=== PATIENT | female | born 1955 | race Caucasian/White ===

== ENCOUNTER → 2017-01-26 | Outpatient (CLI) | payer OTHER ==
[~2017-01-26] MED LIST: GADOBUTROL 10 ML VIAL IVP ONE
== END ==
LOC: FIMAGING 16:49
PROVIDERS: ATTEND Internal Medicine
DX: H53.9 Unspecified visual disturbance (principal); D32.9 Benign neoplasm of meninges, unspecified
CPT/HCPCS: A9585

== ENCOUNTER → 2017-03-04 | Outpatient (CLI) | payer OTHER ==
--- NOTE | 2017-03-07 12:52 | CPEEG ---
[f rep st] ELECTROENCEPHALOGRAM 4-HOUR VIDEO EEG DATE OF STUDY: 03/04/2017 DATE OF INTERPRETATION: 03/07/2017 INTERPRETATION: This 4-hour video EEG recording is normal. There were no potentially epileptogenic abnormalities present on the awake or sleep recordings. During the video EEG monitoring session, the patient did not have any clinical events. REPORT: This 4-hour video EEG contains 10-11 Hz alpha activity to the posterior head regions. There was no abnormal activation at rest, during photic stimulation or hyperventilation. The background activity was normal and symmetric. The patient became drowsy and fell into sustained sleep during the study. This included rapid eye movement (REM) sleep. There was no abnormal activation during drowsiness, sleep or during times of arousal. During the video EEG monitoring session, the patient did not have any clinical events. /[id number]/MODL MTDD
== END ==
LOC: FCPNEURO 08:41
PROVIDERS: ATTEND Psychiatry & Neurology Neurology
DX: D32.0 Benign neoplasm of cerebral meninges (principal)

== ENCOUNTER → 2017-06-09 | Outpatient (CLI) | payer OTHER | LOC: FIMAGING 09:32 | PROVIDERS: ATTEND Internal Medicine | DX: Z01.818 Encounter for other preprocedural examination (principal); D32.9 Benign neoplasm of meninges, unspecified ==

== ENCOUNTER 2017-06-14 07:15 | Inpatient (IN) | payer OTHER ==
[2017-06-14] MEDS ORDERED: ceFAZolin 2 GM/DEXTROSE 100 ML IV ONE (07:26)
[2017-06-14] MEDS ORDERED: DEXAMETHASONE 10 MG/ML VIAL IVP ONE (07:26)
[2017-06-14] MEDS ORDERED: GADOBUTROL 10 ML VIAL IVP ONE (08:03)
[2017-06-14] MEDS ORDERED: LIDOCAINE 1% 2 ML INJ ID PRN (08:23)
[2017-06-14] MEDS ORDERED: LR 1,000 ML IV ONE (08:23)
[2017-06-14 09:29] LABS: INR 1.19 (0.83-1.16); PROTIME(PATIENT) 15.1 SEC (12.0-15.0)
[2017-06-14 09:30] LABS: APTT 29.5 SEC (23.0-38.0)
[2017-06-14] MEDS ORDERED: MANNITOL 20% 100 GM/500 ML BAG IV ONE (09:44)
[2017-06-14] MEDS ORDERED: BACITRACIN ZINC 14.2 GM OINTTUBE TP ONE (09:44)
[2017-06-14] MEDS ORDERED: CHLORHEXIDINE GLUC HIBICLENS 118 ML BTL TP ONE (09:44)
[2017-06-14] MEDS ORDERED: SURGIFLO MATRIX KIT WITH THROMBIN TP ONE (09:44)
[2017-06-14] MEDS ORDERED: POVIDONE-IODINE 30 GM OINTTUBE TP ONE (09:45)
[2017-06-14] MEDS ORDERED: HYDROGEN PEROXIDE 236 ML BOTTLE TP ONE (09:45)
[2017-06-14] MEDS ORDERED: GENTAMICIN SULFATE 80 MG/2 ML VIAL ONE (09:45)
[2017-06-14] MEDS ORDERED: AVITENE POWDER 1 GM JAR TP ONE (09:45)
[2017-06-14] MEDS ORDERED: BUPIVACAINE/EPI 0.25% 30 ML SDV ONE (09:45)
--- NOTE | 2017-06-14 09:51 | PDHPUP ---
History & Physical Update H&P update statement: This history and physical update is based on an assessment of the patient which was completed after admission or registration (within 24 hours), but prior to the surgery/procedure. H&P update: H&P reviewed & patient examined, no change in patient's condition since H&P completed
[2017-06-14] MEDS ORDERED: MIDAZOLAM 2 MG/2 ML VIAL IVP ONE (10:55)
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
[2017-06-14] MEDS ORDERED: PROPOFOL 200 MG/20 ML VIAL ONE (11:44)
[2017-06-14] MEDS ORDERED: PROPOFOL/EMULSION 500 MG/50 ML BOTTLE IV ONE (11:44)
[2017-06-14] MEDS ORDERED: ROCURONIUM 50 MG/5 ML VIAL ONE (11:44)
[2017-06-14] MEDS ORDERED: LIDOCAINE 2% 5 ML SDV ONE (11:44)
[2017-06-14] MEDS ORDERED: fentaNYL 100 MCG/2 ML INJ ONE ×3 (11:44→16:03)
[2017-06-14] MEDS ORDERED: REMIFENTANIL HCL 1 MG VIAL ONE (11:44)
[2017-06-14] MEDS ORDERED: THROMBIN (BOVINE) 5,000 UNIT VIAL TP ONE (12:12)
[2017-06-14] MEDS ORDERED: PHENYLEPHRINE HCL 100 MCG/ML SYR ONE ×2 (12:37→13:14)
[2017-06-14] MEDS ORDERED: DEXAMETHASONE 4 MG/ML VIAL ONE ×3 (12:40)
[2017-06-14] MEDS ORDERED: NALOXONE HCL 0.4 MG/ML INJ IVP PRN (15:18)
[2017-06-14] MEDS ORDERED: PROMETHAZINE HCL 25 MG/ML INJ IVP PRN (15:18)
[2017-06-14] MEDS ORDERED: HYDROmorphONE/DILAUDID 1 MG/ML SYR IVP PRN ×2 (15:18→16:27)
[2017-06-14] MEDS ORDERED: MEPERIDINE 25 MG/ML SYR IVP PRN (15:18)
[2017-06-14] MEDS ORDERED: ONDANSETRON 4 MG/2 ML VIAL IVP PRN ×2 (15:18→16:27)
[2017-06-14] MEDS ORDERED: fentaNYL 100 MCG/2 ML INJ IVP PRN ×2 (15:18)
[2017-06-14] MEDS ORDERED: ONDANSETRON 4 MG/2 ML VIAL ONE ×2 (15:21→16:47)
[2017-06-14] MEDS ORDERED: ceFAZolin 1 GM VIAL ONE ×2 (15:26)
[2017-06-14] MEDS ORDERED: MAGNESIUM HYDROXIDE 30 ML UDCUP PO PRN (16:27)
[2017-06-14] MEDS ORDERED: ONDANSETRON DISINTEGRATING 4 MG TAB PO PRN (16:27)
[2017-06-14] MEDS ORDERED: LACTULOSE 20 GM/30 ML UDCUP PO PRN (16:27)
[2017-06-14] MEDS ORDERED: POLYETHYLENE GLYCOL 3350 17 GM PKT PO PRN (16:27)
[2017-06-14] MEDS ORDERED: BISACODYL 10 MG SUPP PR PRN (16:27)
[2017-06-14] MEDS ORDERED: HYDROCODONE/APAP 10/325 TAB PO PRN (16:27)
[2017-06-14] MEDS ORDERED: ACETAMINOPHEN 325 MG TAB PO PRN (16:27)
--- NOTE | 2017-06-14 16:27 | POSTANESTH ---
Post Anesthetic Evaluation Cardiovascular Status: Normal, Stable Respiratory Status: Normal, Stable Level of Consciousness/Mental Status: Can Participate in Eval Pain Control: Adequate, Prn Tx Ordered Nausea/Vomiting Control: Adequate, Prn Tx Ordered Complications Possibly Related to Anesthesia: None Noted
[2017-06-14] MEDS ORDERED: *MD ORDERING ONLY-DEXAMETHASONE TAPER PO SCH (16:30)
[2017-06-14] MEDS ORDERED: NS W/ 20 KCl/L 1,000 ML IV SCH (16:30)
--- NOTE | 2017-06-14 16:44 | POSTOPPROG ---
Post Op Note Date of Operation: 06/14/17 Surgeon: Gregory Cason Home Agent: Ingris Jenkins PA-C Anesthesia: GET(General Endotracheal) Pre-op Diagnosis: Left petroclival brain mass Post-op Diagnosis: same Procedure: Left sub-temporal craniotomy for resection of brain mass Inf/Abcess present in the surg proc area at time of surgery?: No Depth: Organ Space EBL: 50-100 SOAP Progress Note Assessment/Plan: Assessment: Plan: 06/14/17 16:40 S: Patient in PACU. Stable. Denies pain. O: NAD, VSS- tachy 116 PERRL, EOMI CN II-XII grossly intact No droop ZIEGLER X 4 Sensation intact Incision c/d/i- stapled on telfa and baci on incision A: 61 yo female sp left sub-temporal craniotomy for resection of brain mass, suspected meningioma Plan: -Admit to ICU -Neuro checks -Postop MRI in am -Family called after procedure and noted that patient may or may not have been drinking a lot lately. Is a prior alcoholic. Has had recent episodes of possibe seizure/passing out so drinking activity unknown. Have ordered CIWA protocol in case we need to be aware of withdrawal -Optimized pain management -Activity as tolerated -PT/OT/GERIATRIC PHYSICIAN -Final pathology pending- suspect meningioma -call NS with any changes in neuro exam Objective: Vital Signs Temp Pulse Resp BP Pulse Ox 37.3 C 87 20 135/85 H 83 L 06/14/17 11:40 06/14/17 11:40 06/14/17 11:40 06/14/17 11:40 06/14/17 11:40 PT 15.1 SEC (12.0-15.0) H 06/14/17 08:20 INR 1.19 (0.83-1.16) H 06/14/17 08:20
[2017-06-14] MEDS ORDERED: HYDROmorphONE/DILAUDID 1 MG/ML SYR ONE (16:47)
[2017-06-14] MEDS: HYDROmorphONE/DILAUDID 1 MG/ML SYR IVP PRN ×3 (16:50→17:11)
[2017-06-14] MEDS: DEXAMETHASONE 4 MG TAB PO SCH (18:16)
--- NOTE | 2017-06-14 20:18 | GOP ---
[f rep st] OPERATIVE REPORT DATE OF OPERATION: 06/14/2017 SURGEON: Gregory Cason MD NEUROSURGEON: Gregory Cason MD OR MANAGER: Marva Richards PA-C ANESTHESIA: General endotracheal. PREOPERATIVE DIAGNOSIS: Petrous apex meningioma. POSTOPERATIVE DIAGNOSIS: Petrous apex meningioma. PROCEDURE PERFORMED: 1. Left temporal craniotomy. 2. Microsurgical gross total resection of left petrous apex meningioma via left subtemporal skull-b ased approach. 3. Use of the operative microscope. 4. Stealth stereotactic neuronavigation for volumetric gross total resection of meningioma. 5. Intraoperative neurophysiologic monitoring, including cranial nerves, V and . 6. Electromyography monitoring. FINDINGS: Successful tumor resection. SPECIMENS: Left petrous apex mass. ESTIMATED BLOOD LOSS: 75 cc. DESCRIPTION OF PROCEDURE: After informed consent was obtained from the patient, the patient was bro ught to the operating room and was placed in a supine position on the operating table. A formal stas e-out was performed, identifying the patient by name, medical record number, and date of . Pre operative antibiotics were given. The endotracheal tube was placed, and general endotracheal anesth esia was smoothly induced. The patient was then turned to the left lateral decubitus position, and a lumbar drain was placed using a 14-gauge Touhy needle under sterile conditions. The needle was us ed to puncture the dura at the L3-4 interspace. Clear CSF was obtained. The drain was threaded to a depth of 30 cm, and the needle was removed. The drain was then sterilely dressed. The patient wa s then turned back into the supine position, where all appropriate neurophysiologic monitoring leads were placed, and I placed the leads into the lateral rectus muscle of the left eye for monitoring o f cranial nerve . Next, the head was placed in the Brown pins and turned toward the right side . The Stealth was registered to the scalp using known surface landmarks and checked for accuracy. This was then used to plan a left subtemporal incision, starting at the root of the zygoma and curvi ng posteriorly over the ear. The hair was clipped. 10 cc of 0.25% Marcaine with epinephrine was in filtrated in the skin for hemostasis. The head was then prepped and draped in the normal sterile fa shion, and the skin incision was made using a 10 blade. The subcutaneous tissues were dissected usi ng monopolar electrocautery, and the temporalis muscle and its fascia was opened in line with the in cision. David clips were placed for hemostasis. 40 cc of CSF was then drained from the lumbar drai n, which allowed the brain to be slack. A single bur hole was created at the root of the zygoma, an d a standard subtemporal curvilinear craniotomy flap based at the temporal fossa was turned using th e craniotome. The high-speed drill was used to drill down the temporal bone at the skull base, and some mastoid air cells were entered. These were waxed using bone wax. All bleeding was controlled with bipolar electrocautery and Gelfoam. A few dural tack-up sutures were placed. The dura was the n opened in a curvilinear fashion with its base at the subtemporal region and tacked up using 4-0 Nu saritha. The operative microscope was then brought on the field, and the remainder of procedure was p erformed under high-power magnification. First, we gently elevated the temporal lobe on the left side with care to preserve all veins and vas cular structures. As we elevated this anteriorly, the tumor was visualized growing superiorly from the tentorium and over Meckel cave. We continued elevating, exposing the anterior and posterior asp ects of the tumor, and this was checked with the Stealth. The brain had good relaxation, and we did not need to place self-retaining retractors but just dynamic traction with use of the suction and b ipolar forceps. The base of the tumor was then devascularized, using the bipolar, and the tumor was entered. It was quite fibrous and we tried to debulk some of it with the ultrasonic aspirator, but it was largely to fibrous to be removed by this manner; therefore, we continued using bipolar elect rocautery and micro scissors to remove the tumor in a piecemeal fashion. As we debulked internally, I was unable to find the edge of the tentorium posteriorly, and we could see the ambient cistern. Some CSF was drained from that area. We continued then, moving anteriorly, resecting more of the tu mor, and as we debulked internally, we were able to collapse the capsule on itself away from the tem poral lobe. As we reached the more anterior portion, we could see where the tentorium became contin uous with the lateral cavernous sinus over Meckel cave. I did see a small structure, which appeared like a cranial nerve. This was stimulated and we did get some stimulation of cranial nerve V, sugg esting this indeed was over Meckel cave. We continued resecting as much of the tumor superior to th e tentorium and lateral cavernous sinus as we could. I did not want to enter the cavernous sinus as we were trying to not give her any major cranial nerve deficits. We checked our resection with the Stealth, and all the larger supratentorial portion of the tumor appeared to be removed. The edge o f the tentorium from where the tumor was growing was coagulated using bipolar electrocautery. There was no further bleeding, and the temporal lobe was nicely relaxed. At this point, the wound was co piously irrigated using gentamicin irrigation. The temporal lobe at the area where we had resected the tumor was covered with Surgicel, and the dura was then closed in a watertight fashion using inte rrupted 4-0 Nurolon. The dural opening was covered with DuraSeal and a piece of Gelfoam, and the cr aniotomy flap was plated back in place using Synthes titanium plates and screws. At this point, the wound was again copiously irrigated using bacitracin irrigation. The temporalis muscle and its fas kala were closed using interrupted 2-0 Vicryl. The galea was closed using interrupted 2-0 Vicryl, an d the skin was closed using a running 4-0 Monocryl. The patient was then removed from the Brown pins. She was turned to the lateral decubitus position. The lumbar drain was removed, and a single suture was placed at the entry site. The patient was then awakened in the operating room and was t ransferred to the PACU stable condition. There were no operative complications. I was scrubbed and present for the entire procedure. BRIEF CLINICAL HISTORY: The patient is a 61-year-old woman who presented with a number of unusual s ymptoms, including visual floaters, seizure-like episodes, and facial pain on the ipsilateral side. She was found to have a left petrous apex mass with avid contrast enhancement extending slightly in to the posterior fossa and into the posterior cavernous sinus. We had discussed her case at [facility] and recommended radiotherapy; however, the patient then met with the radiation oncologist, and was not pleased with how long the radiation would take to work; therefore, she did want surgical res ection. I explained to her all the risks, benefits, and we elected to proceed today. FLUIDS: Per the anesthesia record. URINE OUTPUT: Per the anesthesia record. DRAINS: None. COUNTS: All sponge and needle counts were correct at the end of the case. /[id number]/MODL
[2017-06-14] MEDS: HEPARIN 5,000 UNIT/0.5 ML SYR SC SCH (21:00)
[2017-06-14] MEDS: QUEtiapine FUMARATE 50 MG TAB PO SCH (21:00)
[2017-06-14] MEDS: SENNOSIDES/DOCUSATE SODIUM TAB PO SCH (21:00)
[2017-06-14] MEDS: LACOSAMIDE 50 MG TAB PO SCH (21:00)
[2017-06-14] MEDS: FAMOTIDINE 20 MG TAB PO SCH (21:00)
[2017-06-15] MEDS: DEXAMETHASONE 4 MG TAB PO SCH ×4 (01:18→23:48)
[2017-06-15 05:41] LABS: % IMMATURE GRANULYOCYTES 0.4 % (0.0-1.1); ABSOLUTE IMMATURE GRANULOCYTES 0.02 10^3/uL (0.00-0.10); ADD DIFF? NO; ADD MORPH? NO; ADD SCAN? NO; ATYPICAL LYMPHOCYTE FLAG 0 (0-99); FRAGMENT RBC FLAG 0 (0-99); HEMATOCRIT 33.2 % (38.0-47.0); LEFT SHIFT FLG 0 (0-99); LIPEMIA HEMOLYSIS FLAG 80 (0-99); MEAN CELL HEMOGLOBIN 33.3 pg (27.9-34.1); MEAN CELL HEMOGLOBIN CONCENTR. 33.1 g/dL (32.4-36.7); MEAN CELL VOLUME 100.6 fL (81.5-99.8); PLATELET CLUMPS FLAG 0 (0-99); PLATELET COUNT 90 10^3/uL (150-400); RED CELL DISTRIBUTION WIDTH 13.2 % (11.5-15.2)
[2017-06-15 05:46] LABS: ANION GAP 4 mEq/L (8-16); CALCIUM 8.4 mg/dL (8.5-10.4); CARBON DIOXIDE 25 mEq/l (22-31); CHLORIDE 107 mEq/L (97-110); CREATININE 0.8 mg/dL (0.6-1.0); GLOMERULAR FILTRATION RATE > 60; GLUCOSE 132 mg/dL (70-100); POTASSIUM 3.9 mEq/L (3.5-5.2); SODIUM 136 mEq/L (134-144)
--- NOTE | 2017-06-15 08:48 | NEUSURGPN ---
Assessment/Plan: A: 61 yo female sp left sub-temporal craniotomy for resection of brain mass, suspected meningioma Plan: -Admit to ICU - likely ok to transfer to floor later today once MRI reviewed if no ETOH withdrawal issues -Neuro checks -Postop MRI pending today -Art line not functioning well, d/w Dr Cason and can be removed. -Family called after procedure and noted that patient may or may not have been drinking a lot lately. Is a prior alcoholic. Has had recent episodes of possibe seizure/passing out so drinking activity unknown. Have ordered CIWA protocol in case we need to be aware of withdrawal -Optimized pain management -Activity as tolerated -PT/OT/CONTINUOUS TOWEL ROLLER -Final pathology pending- suspect meningioma -call NS with any changes in neuro exam -D/w Dr Cason Subjective: Pt resting in bed, c/o some bruising like pain over left ear. States pre op headache is gone. Objective: AAOx3 NAD No droop CN II - XII grossly intact Incision cdi MAEx4 Motor 5/5 BUE/BLE - deferred testing LUE due to arterial line being re-dressed by RN +LT Urinary Catheter in Place: No Catheter Insertion Date: 06/14/17 - Physician Discussed Patient with : Yoav Neurosurgery Physical Exam - Vitals, I&O, Labs I and O 06/14/17 06/15/17 06/16/17 05:59 05:59 05:59 Intake Total 4040 Output Total 2545 300 Balance 1495 -300 Weight 54.431 kg 54.431 kg Intake: Oral (ml) 1850 IV Intake (ml) 1300 IV Infused (ml) 890 NS W/ 20 KCl/L 1,000 ml @ 890 100 mls/hr IV CONT MARY Rx#:[id number] Output: Urine (ml) 1025 300 Bedside Commode 350 300 Catheter 675 Estimated Blood Loss (ml) 20 Emesis (ml) 1500 Vital Signs Temp Pulse Resp BP Pulse Ox 36.6 C 84 16 140/80 H 98 06/15/17 04:00 06/15/17 06:00 06/15/17 06:00 06/15/17 06:00 06/15/17 06:00 Laboratory Results 06/15/17 05:30 06/15/17 05:30 ICD10 Worksheet Patient Problems: Problems Problem Status Onset Brain mass Acute - ICD10 Problem Qualifiers (1) Brain mass
[2017-06-15] MEDS: FAMOTIDINE 20 MG TAB PO SCH ×2 (09:14→20:49)
[2017-06-15] MEDS: SENNOSIDES/DOCUSATE SODIUM TAB PO SCH ×2 (09:14→20:50)
[2017-06-15] MEDS: LACOSAMIDE 50 MG TAB PO SCH ×2 (09:14→21:04)
[2017-06-15] MEDS: HEPARIN 5,000 UNIT/0.5 ML SYR SC SCH (09:57)
[2017-06-15] MEDS ORDERED: GADOBUTROL 10 ML VIAL IVP ONE (11:21)
[2017-06-15] MEDS: QUEtiapine FUMARATE 50 MG TAB PO SCH (20:50)
[2017-06-16 00:04] VITALS: BP 109/60; PULSE 60; RESP 16; TEMP 98.6; O2SAT 94
[2017-06-16] MEDS: SENNOSIDES/DOCUSATE SODIUM TAB PO SCH (07:52)
[2017-06-16] MEDS: FAMOTIDINE 20 MG TAB PO SCH (07:52)
[2017-06-16] MEDS: LACOSAMIDE 50 MG TAB PO SCH (08:24)
--- NOTE | 2017-06-16 09:17 | NEUSURGPN ---
Assessment/Plan: A: 61 yo female sp left sub-temporal craniotomy for resection of brain mass, suspected meningioma - POD#2 Plan: -No ETOH withdrawal issues so far -Neuro checks -Postop MRI shows good resection, reviewed by Dr. Cason -Family called after procedure and noted that patient may or may not have been drinking a lot lately. Is a prior alcoholic. Has had recent episodes of possibe seizure/passing out so drinking activity unknown. Have ordered CIWA protocol in case we need to be aware of withdrawal -Optimized pain management -Activity as tolerated -PT/OT/SUPERVISOR CLAIMS -Final pathology pending- suspect meningioma -call NS with any changes in neuro exam -Pt seen by Dr Cason today and also d/w Dr Cason Subjective: Pt eating breakfast this AM, feels good and wants to DC home. Objective: AAOx3 NAD VSS MAEx4 CN II-XII intact Ecchymosis over L eye Motor 5/5 BUE/BLE +LT Urinary Catheter in Place: No Catheter Insertion Date: 06/14/17 - Physician Discussed Patient with Dr.: Cason Patient Seen by : Yoav Neurosurgery Physical Exam - Vitals, I&O, Labs I and O 06/15/17 06/16/17 06/17/17 05:59 05:59 05:59 Intake Total 4040 Output Total 2545 300 Balance 1495 -300 Weight 54.431 kg Intake: Oral (ml) 1850 IV Intake (ml) 1300 IV Infused (ml) 890 NS W/ 20 KCl/L 1,000 ml @ 890 100 mls/hr IV CONT MARY Rx#:[id number] Output: Urine (ml) 1025 300 Bedside Commode 350 300 Catheter 675 Estimated Blood Loss (ml) 20 Emesis (ml) 1500 Other: Intake Quantity Yes Sufficient Vital Signs Temp Pulse Resp BP Pulse Ox 37.0 C 60 16 109/60 94 06/16/17 00:00 06/16/17 00:00 06/16/17 00:00 06/16/17 00:00 06/16/17 00:00 Laboratory Results 06/15/17 05:30 06/15/17 05:30 ICD10 Worksheet Patient Problems: Problems Problem Status Onset Brain mass Acute - ICD10 Problem Qualifiers (1) Brain mass
[2017-06-16] MEDS: DEXAMETHASONE 4 MG TAB PO SCH (11:38)
[2017-06-18] MEDS ORDERED: DEXAMETHASONE 2 MG TAB PO SCH
[2017-06-19] MEDS ORDERED: DEXAMETHASONE 2 MG TAB PO SCH (12:00)
== END 2017-06-16 11:41 | disposition home or self-care (01) | DRG 27 ==
LOC: F3N 07:37 → F2N 16:39 → F3N 06-15 17:10
PROVIDERS: ADMIT Neurological Surgery; ATTEND Neurological Surgery
PROC: 8E09XBZ Computer Assisted Procedure of Head and Neck Region (ICD-10-PCS; principal; 2017-06-14 10:15)
PROC: 00B10ZX Excision of Cerebral Meninges, Open Approach, Diagnostic (ICD-10-PCS; principal; 2017-06-14 10:15)
PROC: 4A1034G Monitoring of Central Nervous Electrical Activity, Intraoperative, Percutaneous Approach (ICD-10-PCS; principal; 2017-06-14 10:15)
DX: D32.0 Benign neoplasm of cerebral meninges (principal)
CPT/HCPCS: 97116-GP; 97162-GP; 97165-GO; A9585; C1713; J0690; J1100; J1170; J1200; J2250; J2370; J2405; J2704; J3010

== ENCOUNTER 2017-11-02 17:01 | Emergency (ER) | payer OTHER ==
[2017-11-02 17:12] VITALS: RESP 16
--- NOTE | 2017-11-02 18:17 | EDPHY ---
H & P Time Seen by Provider: 11/02/17 18:16 HPI/ROS: Chief complaint. Seizure HPI. A 62-year-old female with seizure disorder had possible seizure today. There was about an hour were she does not remember and then she awoke in her office with EMS. She was initially disoriented now back to normal. She had meningioma surgery in June. She did have a previous seizure disorder. She uses Keppra 500 mg twice daily. She did take her Keppra this morning and then took another Keppra about a 0.5 hr prior to arrival. She did bite the right side of her tongue. Her last seizure was probably October 08 it. Not ill. No fever. No recent head injury. ROS Constitutional. no fever/chills, no weakness Eyes. no problems with vision ENT. no sore throat, no nasal drainage Cardiovascular. no chest pain Respiratory. no shortness of breath, no cough Abdominal. no abdominal pain, no nausea/vomiting, no diarrhea . no problems urinating MS. no calf pain/swelling, no neck/back pain, no joint pain Skin. no rash Lymph. no swollen glands Neuro. Seizure Past Medical/Surgical History: Seizure disorder, meningioma, tubal ligation Social History: Single, nonsmoker, no alcohol Smoking Status: Former smoker Physical Exam: General Appearance: Alert well-developed female no distress vital signs are stable Eyes: Pupils equal and round no pallor or injection. ENT, tongue bitten on the right Respiratory: There are no retractions, lungs are clear to auscultation. Cardiovascular: Regular rate and rhythm. Gastrointestinal: Abdomen is soft and nontender, no masses, bowel sounds normal. Neurological: Awake and alert, sensory and motor exams grossly normal. Skin: Warm and dry, no rashes. Musculoskeletal: Neck is supple nontender. Extremities symmetrical, full range of motion. Psychiatric: Patient is oriented X 3, there is no agitation. Constitutional: Initial Vital Signs Temperature (C) 37.1 C 11/02/17 17:08 Heart Rate 111 H 11/02/17 17:08 Respiratory Rate 16 11/02/17 17:08 Blood Pressure 138/84 H 11/02/17 17:08 O2 Sat (%) 96 11/02/17 17:08 O2 Delivery Mode Room Air Allergies/Adverse Reactions: No Known Allergies Allergy (Verified 11/02/17 17:07) Home Medications: Medication Instructions Recorded QUEtiapine FUMARATE [Seroquel 50 50 mg PO HS 06/01/17 mg (*)] HYDROcodone/APAP [[employer] Mdl 1 - 2 tab PO Q6HRS PRN #80 tab 06/16/17 (*)] Sennosides/Docusate Sodium 1 - 2 tab PO BID #0 tab 06/16/17 [Senokot-S] Keppra 11/02/17 Medical Decision Making - Diagnostics Imaging Results: MRI without and with contrast shows no mass or blood. Expected postsurgical changes with mild edema. No acute infarct. Reviewed by me and discussed with Dr. Estrada Procedures: IV normal saline, seizure precautions ED Course/Re-evaluation: Re-evaluation 10:00 p.m.. Patient and I discussed imaging study results, laboratory evaluation, treatment plan including criteria for return importance of follow-up further evaluation. She expresses understanding Differential Diagnosis: I considered CVA, intracranial bleeding, brain tumor, cerebral edema - Data Points Laboratory Results: Laboratory Results 11/02/17 18:45 11/02/17 18:45 11/02/17 11/02/17 18:45 18:45 WBC 4.00 10^3/uL 10^3/uL (3.80-9.50) RBC 4.18 10^6/uL 10^6/uL (4.18-5.33) Hgb 14.2 g/dL g/dL (12.6-16.3) Hct 41.3 % % (38.0-47.0) MCV 98.8 fL fL (81.5-99.8) MCH 34.0 pg pg (27.9-34.1) MCHC 34.4 g/dL g/dL (32.4-36.7) RDW 13.3 % % (11.5-15.2) Plt Count 133 10^3/uL L 10^3/uL (150-400) MPV 9.8 fL fL (8.7-11.7) Neut % (Auto) 62.6 % % (39.3-74.2) Lymph % (Auto) 26.3 % % (15.0-45.0) Lyon % (Auto) 8.8 % % (4.5-13.0) Eos % (Auto) 0.8 % % (0.6-7.6) Baso % (Auto) 1.0 % % (0.3-1.7) Nucleat RBC Rel Count 0.0 % % (0.0-0.2) Absolute Neuts (auto) 2.51 10^3/uL 10^3/uL (1.70-6.50) Absolute Lymphs (auto) 1.05 10^3/uL 10^3/uL (1.00-3.00) Absolute Monos (auto) 0.35 10^3/uL 10^3/uL (0.30-0.80) Absolute Eos (auto) 0.03 10^3/uL 10^3/uL (0.03-0.40) Absolute Basos (auto) 0.04 10^3/uL 10^3/uL (0.02-0.10) Absolute Nucleated RBC 0.00 10^3/uL 10^3/uL (0-0.01) Immature Gran % 0.5 % % (0.0-1.1) Immature Gran # 0.02 10^3/uL 10^3/uL (0.00-0.10) Sodium 139 mEq/L mEq/L (134-144) Potassium 4.1 mEq/L mEq/L (3.5-5.2) Chloride 103 mEq/L mEq/L (97-110) Carbon Dioxide 24 mEq/l mEq/l (22-31) Anion Gap 12 mEq/L mEq/L (8-16) BUN 8 mg/dL mg/dL (7-23) Creatinine 0.8 mg/dL mg/dL (0.6-1.0) Estimated GFR > 60 Glucose 115 mg/dL H mg/dL (70-100) Calcium 9.5 mg/dL mg/dL (8.5-10.4) Medications Given: Discontinued Medications Sodium Chloride (Ns) 1,000 mls @ 0 mls/hr IV EDNOW ONE; Wide Open PRN Reason: Protocol Stop: 11/02/17 18:34 Last Admin: 11/02/17 18:43 Dose: 1,000 mls Departure - Departure Disposition: Home, Routine, Self-Care Clinical Impression: Seizure, Meningioma Condition: Good Instructions: Recurrent Seizures in Adults (ED) Additional Instructions: No driving or other dangerous activity until cleared by Dr. Jean Baptiste. Make sure you continue to take your Keppra twice daily. Return for another seizure. Make a follow-up appointment with Dr. Jean Baptiste for possible change in your medication Referrals: Vernon Lakhani MD [Primary Care Provider] - As per Instructions Sage Jean Baptiste MD [Medical Doctor] - As per Instructions
[2017-11-02] MEDS ORDERED: NS 1,000 ML IV ONE (18:33)
[2017-11-02 19:02] LABS: PLATELET COUNT 133 10^3/uL (150-400)
[2017-11-02] MEDS ORDERED: GADOBUTROL 10 ML VIAL IVP ONE (20:17)
[2017-11-02 22:20] VITALS: BP 129/83; PULSE 81; TEMP 98.6; O2SAT 97
== END 2017-11-02 22:20 | disposition home or self-care (01) ==
DX: G40.909 Epilepsy, unspecified, not intractable, without status epilepticus (principal); D32.9 Benign neoplasm of meninges, unspecified; E86.9 Volume depletion, unspecified; Z87.891 Personal history of nicotine dependence
CPT/HCPCS: A9585

== ENCOUNTER 2017-12-23 07:26 | Emergency (ER) | payer OTHER ==
--- NOTE | 2017-12-23 07:41 | EDPHY ---
H & P Stated Complaint: r abd pain/"bulging"area/n/v HPI/ROS: CHIEF COMPLAINT: Abdominal pain, vomiting. HISTORY OF PRESENT ILLNESS: The patient is a 62 y/o female with a seizure disorder arriving with her family member complaining of abdominal pain over the last week that worsened acutely last night and is now associated with vomiting. She initially noticed some lower abdominal pain after skiing last weekend and attributed continuing pain to muscle soreness. However, her pain did not improve and localized to her RLQ last night. She vomited repeatedly throughout the night and the most recent episode was while in the waiting room here. She felt feverish, but did not check her temperature. She also complains of swelling in her RLQ area and is concerned she has appendicitis. She was able to pass small amounts of stool overnight, but has not had a bowel movement this morning nor passed gas. She thinks she vomited up her Keppra last night. She denies chest pain, dyspnea, cough, diarrhea, recent cold symptoms, urinary symptoms. History of tubal ligation, but otherwise no abdominal surgeries. REVIEW OF SYSTEMS: A ten point review of systems was performed and is negative with the exception of the items mentioned in the HPI. Past medical history: Meningioma, seizure disorder (last seizure 11/08/17) - Keppra Past surgical history: Tubal ligation, left temporal meningioma resection Family history: Noncontributory Social history: Nonsmoker. Occasional alcohol use. Family member at bedside. General Appearance: Alert. Vital signs reviewed. Blood pressure 157/80 at triage. Appears in pain. Eyes: Pupils equal and round, no conjunctival injection, no discharge. Anicteric. ENT, Mouth: Mucous membranes are moist, no oropharyngeal erythema or edema. Neck: No lymphadenopathy, supple. Respiratory: Lungs are clear to auscultation; no wheezes, rales, or rhonchi. Cardiovascular: Regular rate and rhythm; no murmur, rub, or gallop. Gastrointestinal: Abdomen is soft, RUQ tenderness and RLQ tenderness with guarding, no appreciable masses or organomegaly, bowel sounds hypoactive. Skin: Warm and dry, no rashes on exposed skin, normal color. No bruising. Back: Nontender to palpation over the thoracolumbar spine. No CVAT. Extremities: No lower extremity edema, no calf tenderness or swelling. Ecchymosis left leg. Neurological: Alert and oriented. Moving all four extremities easily and equally. Psychiatric: Normal affect. - Personal History Current Tetanus Diphtheria and Acellular Pertussis (TDAP): Yes - Medical/Surgical History Hx Asthma: No Hx Chronic Respiratory Disease: No Hx Diabetes: No Hx Cardiac Disease: No Hx Renal Disease: No Hx Cirrhosis: No Hx Alcoholism: Yes Hx HIV/AIDS: No Hx Splenectomy or Spleen Trauma: No Other PMH: seizure, tubaligation, meningeoma - Social History Smoking Status: Former smoker Constitutional: Initial Vital Signs Temperature (C) 36.7 C 12/23/17 07:33 Heart Rate 87 12/23/17 07:33 Respiratory Rate 17 12/23/17 07:33 Blood Pressure 157/80 H 12/23/17 07:33 O2 Sat (%) 95 12/23/17 07:33 O2 Delivery Mode Room Air O2 (L/minute) 3 Allergies/Adverse Reactions: No Known Allergies Allergy (Verified 12/23/17 07:32) Home Medications: Medication Instructions Recorded QUEtiapine FUMARATE [Seroquel 50 50 mg PO HS 06/01/17 mg (*)] Keppra 11/02/17 Medical Decision Making - Diagnostics Imaging: Discussed imaging studies w/ scallop raker Radiologist, I viewed and interpreted images myself ED Course/Re-evaluation: This is a normally healthy 62 y/o female who presents with a 1-week history of lower abdominal pain that worsened acutely last night and is now localized to her RLQ. Associated with vomiting. She has severe RLQ tenderness with guarding as well as RUQ tenderness. Concern for bowel obstruction or appendicitis. Plan for IV, labs, UA, symptomatic treatment, and stat CT abdomen. 75mg IV Fentanyl, 500mg IV Keppra, 4mg IV Zofran, 1L IV NS ordered. Patient is continuing to have pain. 0.5mg IV Dilaudid ordered. 0845: Spoke with Dr. Pimentel, radiology. He is still viewing the CT scan but believes there may be an abdominal wall hematoma. He will call me back with formal report shortly. Coag panel ordered. Reassessed patient. She denies any abdominal trauma over the past week or during skiing last weekend. She did fall and strike her knee while skiing, but denies other injuries. 0855: Spoke with Dr. Pimentel. He does not see anything in addition to this RLQ hematoma. There could be some active extravasation and he recommends an US to evaluate for this. US shows hematoma without active extravasation. Coags normal. LFTs somewhat elevated. 1040: Consulted with Dr. Douglas, surgeon. He will assess patient in the ED. Reevaluated patient and discussed findings. She notes she's had fluctuating weight since meningioma resection and feels her weight changes have been correlated with antiepileptic drugs. 1150: Consulted with Dr. Douglas after he assessed patient. She admitted to him that she has a history of alcohol abuse and cirrhosis and still drinks moderately, which accounts for her elevated LFTs. He would like her to follow up as an outpatient with him next week for reevaluation. Plan for discharge pending normal repeat H&H. She has had no further vomiting. She was initially tachycardic this has resolved. She does not show signs of alcohol withdrawal. She has some mild right upper quadrant tenderness and I do not think represents biliary colic or pancreatitis. She has been evaluated by Dr. Douglas, general surgery. - Data Points Laboratory Results: Laboratory Results 12/23/17 07:45 12/23/17 07:45 Medications Given: Discontinued Medications Fentanyl (Sublimaze) 75 mcg IVP EDNOW ONE Stop: 12/23/17 07:49 Last Admin: 12/23/17 08:00 Dose: 75 mcg Hydromorphone HCl (Dilaudid) 0.5 mg IVP EDNOW ONE Stop: 12/23/17 08:29 Last Admin: 12/23/17 08:30 Dose: 0.5 mg Sodium Chloride (Ns) 1,000 mls @ 0 mls/hr IV EDNOW ONE; Wide Open PRN Reason: Protocol Stop: 12/23/17 07:49 Last Admin: 12/23/17 08:02 Dose: 1,000 mls Levetiracetam (Keppra (Premix)) 100 mls @ 400 mls/hr IV EDNOW ONE Stop: 12/23/17 08:03 Last Admin: 12/23/17 08:34 Dose: 100 mls Ondansetron HCl (Zofran) 4 mg IVP EDNOW ONE Stop: 12/23/17 07:49 Last Admin: 12/23/17 07:59 Dose: 4 mg Departure - Departure Disposition: Home, Routine, Self-Care Clinical Impression: Rectus sheath hematoma Qualifiers: Encounter type: initial encounter Qualified Code(s): S30.1XXA - Contusion of abdominal wall, initial encounter Condition: Good Instructions: Hematoma (ED) Additional Instructions: Follow up with Dr. Douglas next week as directed. Return to the ED for any worsening of condition. Referrals: Vernon Lakhani MD [Primary Care Provider] - As per Instructions Chase Douglas MD [Medical Doctor] - As per Instructions Report Scribed for: Louisa Tipton Report Scribed by: Jazz Solis Date of Report: 12/23/17 Time of Report: 07:49 Physician Review and Approval Statement: 12/23/17 07:41 Portions of this note were transcribed by the medical billing manager. I, Dr. Louisa Tipton, personally performed the history, physical exam, and medical decision- making; and confirmed the accuracy of the information in the transcribed note.
[2017-12-23] MEDS ORDERED: ONDANSETRON 4 MG/2 ML VIAL IVP ONE (07:48)
[2017-12-23] MEDS ORDERED: NS 1,000 ML IV ONE (07:48)
[2017-12-23] MEDS ORDERED: fentaNYL 100 MCG/2 ML INJ IVP ONE (07:48)
[2017-12-23] MEDS ORDERED: levETIRAcetam 500MG/NACL 100 ML IV ONE (07:49)
[2017-12-23 07:56] LABS: PLATELET COUNT 126 10^3/uL (150-400)
[2017-12-23] MEDS ORDERED: IOPAMIDOL (ISOVUE-300) 100 ML BTL ONE (08:03)
[2017-12-23] MEDS ORDERED: HYDROmorphONE/DILAUDID 1 MG/ML INJ IVP ONE (08:28)
[2017-12-23 08:55] LABS: INR 1.16 (0.83-1.16)
[2017-12-23 10:59] VITALS: RESP 18
[2017-12-23 12:16] VITALS: BP 114/68; PULSE 86; TEMP 99; O2SAT 96
--- NOTE | 2017-12-23 12:51 | PDCONSULT ---
Solid Waste Analyst Note: Chief complaint right lower quadrant abdominal pain History of present illness: This is a 62-year-old woman with a history of bipolar disorder and more recently excised meningioma last year on Keppra presenting with right lower quadrant abdominal pain. The patient says the pain woke her up from sleep at approximately 2 this morning. The pain was terrible until she got IV medication. She does admit to skiing vigorously last week having a fall with a contusion on her left thigh but does not recall having any abdominal trauma such as a pole into her stomach or fall directly onto her abdomen. CT scan of the abdomen and pelvis as well as ultrasound shows hematoma of the rectus sheath on the right without active extravasation. past medical history: Bipolar disorder, meningioma with associated seizures Past surgical history: Excision of meningioma June 2017 family history: Noncontributory Allergies no known drug allergies Social history: Previous history of heavy alcohol use denies illicit drug use Medications at home include QUEtiapine FUMARATE [Seroquel 50 mg (*)] 50 mg PO HS 06/01/17 [Last Taken ] Keppra 11/02/17 [Last Taken Unknown] Review of systems is significant for seizure disorder she has not had 1 in 3 months. Malaise secondary to her anti epileptic medications All others negative Temp Pulse Resp BP Pulse Ox 37.2 C 86 18 114/68 96 12/23/17 12:14 12/23/17 12:14 12/23/17 12:14 12/23/17 12:14 12/23/17 12:14 O2 (L/minute) 3 Sclerae anicteric Pupils 3 mm reactive Regular rate and rhythm Clear to auscultation bilaterally Abdomen soft tender in the right lower quadrant with mass effect at the level of the lower rectus sheath but small umbilical hernia No hepatosplenomegaly 2+ over 2+ femoral and distal pulses No extremity edema No rashes normal skin turgor and tone Nonfocal neurologic exam 12/23/17 07:45 12/23/17 07:45 Total Bilirubin 1.3 mg/dL (0.1-1.4) 12/23/17 07:45 Conjugated Bilirubin 0.8 mg/dL (0.0-0.5) H 12/23/17 07:45 Unconjugated Bilirubin 0.5 mg/dL (0.0-1.1) 02/16/18 07:45 AST 302 IU/L (14-46) H 12/23/17 07:45 ALT 201 IU/L (9-52) H 12/23/17 07:45 Impression /plan: Rectus sheath hematoma usually a self-limiting event. no evidence of active extravasation on ultrasound or CT scan performed. No signs of decreasing hemoglobin on repeat laboratory study today. Recommend No acute intervention at this time follow up in the office in approximately 1 week with hemoglobin and hematocrit prior to visit Seizure disorder & Bipolar disorder to be managed by primary care Provider possible cirrhosis of liver INR 1.2 today would recommend follow-up with her primary care physician /provider for this issue recommended abstinence from alcohol use especially with liver toxic medications that she currently takes
== END 2017-12-23 12:20 | disposition home or self-care (01) ==
DX: M79.81 Nontraumatic hematoma of soft tissue (principal); E86.9 Volume depletion, unspecified; Z87.891 Personal history of nicotine dependence; Z98.51 Tubal ligation status
CPT/HCPCS: 82947-QW; 96374; J1170; J1953; J2405; J3010; Q9967

== ENCOUNTER 2018-03-20 12:57 | Emergency (ER) | payer OTHER ==
--- NOTE | 2018-03-20 12:49 | EDPHY ---
H & P Time Seen by Provider: 03/20/18 13:01 Constitutional: Initial Vital Signs Temperature (C) 37.4 C 03/20/18 13:13 Heart Rate 112 H 03/20/18 13:13 Respiratory Rate 20 03/20/18 13:13 Blood Pressure 146/84 H 03/20/18 13:13 O2 Sat (%) 96 03/20/18 13:13 O2 Delivery Mode Room Air Allergies/Adverse Reactions: No Known Allergies Allergy (Verified 12/23/17 07:32) Home Medications: Medication Instructions Recorded QUEtiapine FUMARATE [Seroquel 50 50 mg PO HS 06/01/17 mg (*)] Keppra 11/02/17 Medical Decision Making ED Course/Re-evaluation: CHIEF COMPLAINT: Seizure HISTORY OF PRESENT ILLNESS: The patient is a 62 y/o female with a history of a seizure disorder and brain tumor resection arriving via EMS after a witnessed seizure at work today. She has been postictal for EMS, though mental status has been improving since their initial contact. She is able to provide some history and says she normally takes Keppra, but states she stopped her medications because she's been "having trouble with them." She complains of tongue pain, but denies other trauma, headache, neck or back pain, weakness, paresthesias, or other complaints. She had a bottle of rum with her on arrival here. She thinks her last seizure was in October. REVIEW OF SYSTEMS: A 10 point review of systems was performed and is negative with the exception of the elements mentioned in the history of present illness. PHYSICAL EXAM: HR, BP, O2 Sat, RR. Temp noted General Appearance: Alert, well hydrated, appropriate, and non-toxic appearing. Head: Atraumatic without scalp tenderness or obvious injury Eyes: Pupils equal, round, reactive to light and accommodation, EOMI, no trauma , no injection. Ears: Clear bilaterally, no perforation, normal landmarks Nose: Atraumatic, no rhinorrhea, clear. Throat: There is no erythema or exudates, right lateral tongue abrasion, normal tonsils, mucus membranes moist. Neck: Supple, nontender, no lymphadenopathy. Respiratory: No retractions, no distress, no wheezes, and no accessory muscle use. Lungs are clear to auscultation bilaterally. Cardiovascular: Regular rate and rhythm, no murmurs, rubs, or gallops. Good capillary refill all extremities. Gastrointestinal: Abdomen is soft, nontender, non-distended, no masses, no rebound, no guarding, no peritoneal signs. Musculoskeletal: Normal active ROM of all extremities, atraumatic. Neurological: Alert, orientedx2, and interactive. The patient has non-focal cranial nerves, motor, sensory, and cerebellar exam. Skin: No rashes, good turgor, no nodules on palpation. 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 Alcohol bottle on person. DIFFERENTIAL DIAGNOSIS: The differential diagnosis for the patient's seizure included but was not limited to electrolyte abnormality, alcohol withdrawal, medication noncompliance, head injury, BUTCHER ALL ROUND structural abnormality, and break through seizure. MEDICAL DECISION MAKING: This is a 62 y/o female with a seizure disorder who presents postictal after a witnessed seizure this afternoon in the setting of being off her medications for an unknown amount of time and being found with a bottle of rum on her person. She complains of tongue pain only. Apart from tongue abrasion, exam is unremarkable. Presentation consistent with seizure, possibly related to alcohol withdrawal. Patient is followed by a neurologist for her seizure disorder and does not have signs of head trauma today, will not perform additional neuroimaging today. Plan for IV and labs. EtOH level is 180. Labs otherwise unremarkable. Patient will be discharged home with instructions to use her antiepileptics as prescribed and follow up with her neurologist this week. Return precautions discussed. She is comfortable with this plan. - Data Points Laboratory Results: Laboratory Results 03/20/18 13:01 03/20/18 13:01 03/20/18 03/20/18 13:01 13:01 WBC 7.86 10^3/uL 10^3/uL (3.80-9.50) RBC 4.23 10^6/uL 10^6/uL (4.18-5.33) Hgb 14.2 g/dL g/dL (12.6-16.3) Hct 42.6 % % (38.0-47.0) MCV 100.7 fL H fL (81.5-99.8) MCH 33.6 pg pg (27.9-34.1) MCHC 33.3 g/dL g/dL (32.4-36.7) RDW 14.1 % % (11.5-15.2) Plt Count 136 10^3/uL L 10^3/uL (150-400) MPV 10.0 fL fL (8.7-11.7) Neut % (Auto) 33.8 % L % (39.3-74.2) Lymph % (Auto) 56.0 % H % (15.0-45.0) [place] % (Auto) 7.3 % % (4.5-13.0) Eos % (Auto) 0.6 % % (0.6-7.6) Baso % (Auto) 1.5 % % (0.3-1.7) Nucleat RBC Rel Count 0.0 % % (0.0-0.2) Absolute Neuts (auto) 2.66 10^3/uL 10^3/uL (1.70-6.50) Absolute Lymphs (auto) 4.40 10^3/uL H 10^3/uL (1.00-3.00) Absolute Monos (auto) 0.57 10^3/uL 10^3/uL (0.30-0.80) Absolute Eos (auto) 0.05 10^3/uL 10^3/uL (0.03-0.40) Absolute Basos (auto) 0.12 10^3/uL H 10^3/uL (0.02-0.10) Absolute Nucleated RBC 0.00 10^3/uL 10^3/uL (0-0.01) Immature Gran % 0.8 % % (0.0-1.1) Immature Gran # 0.06 10^3/uL 10^3/uL (0.00-0.10) Sodium 146 mEq/L H mEq/L (135-145) Potassium 3.7 mEq/L mEq/L (3.3-5.0) Chloride 105 mEq/L mEq/L (97-110) Carbon Dioxide 18 mEq/l L mEq/l (22-31) Anion Gap 23 mEq/L H mEq/L (8-16) BUN 7 mg/dL mg/dL (7-23) Creatinine 0.7 mg/dL mg/dL (0.6-1.0) Estimated GFR > 60 Glucose 98 mg/dL mg/dL (70-100) Calcium 8.1 mg/dL L mg/dL (8.5-10.4) Ethyl Alcohol 180 mg/dL H mg/dL (0-10) Departure - Departure Disposition: Home, Routine, Self-Care Clinical Impression: Seizure Condition: Good Instructions: Recurrent Seizures in Adults (ED) Additional Instructions: Take your antiepileptic medications as directed. Follow up with your neurologist as planned. Avoid alcohol abuse. Return to the ED for worsening of condition. Referrals: Sage Jean Baptiste MD [Medical Doctor] - As per Instructions Report Scribed for: Gene Ty Report Scribed by: Jazz Solis Date of Report: 03/20/18 Time of Report: 13:11
[2018-03-20 13:38] LABS: PLATELET COUNT 136 10^3/uL (150-400)
[2018-03-20 14:44] VITALS: BP 128/62
== END 2018-03-20 14:39 | disposition home or self-care (01) ==
LOC: EDUNIT#
DX: G40.909 Epilepsy, unspecified, not intractable, without status epilepticus (principal)
CPT/HCPCS: G0480

== ENCOUNTER 2018-06-26 | Emergency (ER) | payer OTHER | END 2018-06-26 15:13 | disposition home or self-care (01) | DX: K70.31 Alcoholic cirrhosis of liver with ascites (principal) ==